=== PATIENT | male | born 1975 | race Caucasian/White ===

== ENCOUNTER 2018-08-03 20:55 | Emergency (ER) | payer BC, OTHER ==
[2018-08-03 21:11] VITALS: BP 188/123
--- NOTE | 2018-08-10 07:23 | UC ---
Lower Extremity/Ankle HPI - HPI Summary HPI Summary: 43yo with hx of prior L ankle injuries presents with L ankle pain from inversion injury while trail running today. Able to walk on it. No foot or leg pain. No other complaint. - History of Current Complaint Chief Complaint: UCLowerExtremity Stated Complaint: ANKLE INJURY Time Seen by Provider: 08/03/18 21:00 Hx Obtained From: Patient Pain Intensity: 0 Pain Scale Used: 0-10 Numeric - Allergies/Home Medications Allergies/Adverse Reactions: Allergies Allergy/AdvReac Type Severity Reaction Status Date / Time No Known Allergies Allergy Verified 08/03/18 21:12 Home Medications: Home Medications Ibuprofen TAB* [Motrin TAB* 400 MG] 400 mg PO Q6H PRN 08/03/18 [History Confirmed 08/03/18] PMH/Surg Hx/FS Hx/Imm Hx Previously Healthy: Yes - Surgical History Surgical History: Yes Surgery Procedure, Year, and Place: Left ankle as a child - Family History Known Family History: Positive: Non-Contributory - Social History Occupation: Employed Full-time Alcohol Use: Weekly Alcohol Amount: Moderately Substance Use Type: None Smoking Status (MU): Never Smoked Tobacco Review of Systems All Other Systems Reviewed And Are Negative: Yes Constitutional: Positive: Negative Motor: Positive: Decreased ROM Neurovascular: Positive: Negative. Negative: Decreased Sensation Musculoskeletal: Positive: Arthralgia. Negative: Calf Tenderness, Edema Physical Exam Triage Information Reviewed: Yes Appearance: Well-Appearing, No Pain Distress Vital Signs: Initial Vital Signs Temp 98.8 F 08/03/18 21:07 Pulse 57 08/03/18 21:07 Resp 16 08/03/18 21:07 BP 188/123 08/03/18 21:07 Pulse Ox 100 08/03/18 21:07 Vital Signs Reviewed: Yes Eye Exam: Normal ENT: Positive: Hearing grossly normal Respiratory: Positive: Lungs clear Cardiovascular: Positive: RRR Musculoskeletal: Positive: Strength Intact, ROM Intact, Other: - Mild L ATF ligamentous area tenderness without deformity, swelling or redness. Nl gait. Neurological Exam: Normal Skin Exam: Normal Diagnostics - Radiology L ankle Radiology Interpretation Completed By: Radiologist - neg Lower Extremity Course/Dx - Course Course Of Treatment: ankle xrays neg. BRAYDEN applied. Wt bear as tolerated. - Differential Dx/Diagnosis Differential Diagnosis/HQI/PQRI: Fracture (Closed), Sprain Provider Diagnosis: Left ankle sprain Discharge - Sign-Out/Discharge Documenting (check all that apply): Patient Departure All imaging exams completed and their final reports reviewed: Yes - Discharge Plan Condition: Guarded Disposition: HOME Patient Education Materials: Ankle Sprain (ED), Hypertension (ED) Referrals: Enrico Perdomo MD [Primary Care Provider] - Additional Instructions: Rest, ice, elevate, range of motion exercises every hour as discussed. Brayden wrap for comfort and support. If you return to activity do so with a support brace. Follow-up with your family doctor in one week for the ankle and also to have your blood pressure rechecked. - Billing Disposition and Condition Condition: GUARDED Disposition: Home
== END 2018-08-03 21:45 | disposition home or self-care (01) ==
LOC: UCEAST 20:55
DX: S93.402A Sprain of unspecified ligament of left ankle, initial encounter (principal); X50.1XXA Overexertion from prolonged static or awkward postures, initial encounter; Y93.02 Activity, running; Y92.838 Other recreation area as the place of occurrence of the external cause
CPT/HCPCS: 99211; G0463